=== PATIENT | male | born 1980 | race Caucasian/White ===

== ENCOUNTER 2023-03-02 08:41 | Emergency (ER) | payer SELFPAY ==
--- OUTSIDE RECORDS SUMMARY | 2023-03-02 08:44 | XMS REPORT | Continuity of Care Document ---
:1980 Author Organization [facility] Address [address] [place] [id number] Care Team Providers Name Role Phone Rafy Peterson Attending Clinician Unavailable Meghan Hemphill Attending Clinician Unavailable Problems Condition Condition Condition Status Onset Resolution Last Treating Co mments Source Name Details Category Date Date Treatment Clinician Date Encounter Encounter Problem Active Com mon for for [facility] general [facility] adult adult [facility] examinatio examinatio Me dical n with n with Center abnormal abnormal findings findings Influenza Influenza Problem Active Com mon [facility] Pain in Pain in Diagnosis Active Commo n joints joints [facility] Fever and Fever and Problem Active Com mon chills chills [facility] Allergies, Adverse Reactions, Alerts Allergy Allergy Status Severity Reaction(s) Onset Inactive Treating Comm ents Source Name Type Date Date Clinician Clindamy Adverse Active hives Common yessenia HCl Reaction [facility] Medications Ordered Filled Start Stop Current Ordering Indication Dosage Frequency Signature Comments Components Source Medication Medication Date Date Medication? Clinician (SIG) Name Name Tamiflu Tamiflu Yes Meghan 1 capsule Common 08-11 [facility]: - [facility] Mobic Mobic 2020- No Meghan 1 tablet Comm on 08-11 [facility] 00:00: 00:00 - [facility] :00 [facility] Buprenorphi Buprenorphi Yes Meghan 1 tablet Common ne ne [facility] HCl-[place] HCl-[place] tongue and - [facility] HCl e HCl allow to [facility] Procedures This patient has no known procedures. Encounters Start End Encounter Admission Attending Care Care Encounter Source Date/Time Date/Time Type Type Clinicians Facility Department ID 2021-07-30 Outpatient Rafy Peterson [facility] [id number] Common 11:33:57 Corinne [id number] [facility] 2021-07-30 Outpatient Joby [facility] [id number] Common 11:06:19 Meghan [id number] [facility] 2019-08-11 2019-08-11 Outpatient Ruth Mccarty [id number] Common 09:00:00 09:00:00 [facility] Results This patient has no known results.
[2023-03-02] MEDS ORDERED: IBUPROFEN 400 MG TAB ONE (09:24)
--- NOTE | 2023-03-02 11:01 | ER ---
Nurse's Notes [facility] Name: Jordi Blood Age: 42 yrs Sex: Male : 1980 Arrival Date: 03/02/2023 Time: 08:41 Bed 18 Private MD: Diagnosis: Cellulitis of other parts of limb-RIGHT FOREARM Presentation: 03/02 08:54 Chief complaint: Patient states: abscess to right forearm X 4 days. Coronavirus screen: iw At this time, the client does not indicate any symptoms associated with coronavirus-19. Ebola Screen: Patient negative for fever greater than or equal to 101.5 degrees Fahrenheit, and additional compatible Ebola Virus Disease symptoms Patient denies exposure to infectious person. Patient denies travel to an Ebola-affected area in the 21 days before illness onset. No symptoms or risks identified at this time. Risk Assessment: Do you want to hurt yourself or someone else? Patient reports no desire to harm self or others. 08:54 Method Of Arrival: Ambulatory iw 08:54 Acuity: SHYANNE 3 iw Historical: - Allergies: 08:55 Clindamycin; iw - Home Meds: 08:55 Suboxone sublingual [Active]; iw - PMHx: 08:55 None; iw - PSHx: 08:55 None; iw - Immunization history:: Last tetanus immunization: unknown. - Social history:: Smoking status: . Screenin:00 [facility] ED Fall Risk Assessment (Adult) History of falling in the last 3 months, kc6 including since admission No falls in past 3 months (0 pts) Confusion or Disorientation No (0 pts) Intoxicated or Sedated No (0 pts) Impaired Gait No (0 pts) Mobility Assist Device Used No (0 pt) Altered Elimination No (0 pt) Score/Fall Risk Level 0 - 2 = Low Risk. Abuse screen: Denies threats or abuse. Denies injuries from another. Nutritional screening: No deficits noted. Tuberculosis screening: No symptoms or risk factors identified. Assessment: 09:00 General: Appears in no apparent distress. comfortable, Behavior is calm, cooperative, kc6 appropriate for age. Pain: Complains of pain in right arm Pain does not radiate. Pain currently is 7 out of 10 on a pain scale. Neuro: Level of Consciousness is awake, alert, obeys commands, Oriented to person, place, time, situation, Appropriate for age. Cardiovascular: Capillary refill < 3 seconds. Respiratory: Airway is patent Trachea midline Respiratory effort is even, unlabored, Respiratory pattern is regular, symmetrical. GI: No signs and/or symptoms were reported involving the gastrointestinal system. : No signs and/or symptoms were reported regarding the genitourinary system. EENT: No signs and/or symptoms were reported regarding the EENT system. Derm: Skin is intact, is healthy with good turgor, Skin is pink, warm \T\ dry. Wound noted right arm. Musculoskeletal: No signs and/or symptoms reported regarding the musculoskeletal system. Circulation, motion, and sensation intact. Capillary refill < 3 seconds, Range of motion: intact in all extremities. 10:00 Reassessment: Patient appears in no apparent distress at this time. No changes from kc6 previously documented assessment. Patient and/or family updated on plan of care and expected duration. Pain level reassessed. Patient is alert, oriented x 3, equal unlabored respirations, skin warm/dry/pink. Vital Signs: 08:55 BP 125 / 86; Pulse 62; Resp 16; Temp 98.1; Pulse Ox 98% on R/A; Weight 81.65 kg; Height iw 6 ft. 0 in. ; 08:55 Body Mass Index 24.41 (81.65 kg, 182.88 cm) iw ED Course: 08:42 Patient arrived in ED. im 08:47 Torey Bah PA is PHCP. cp 08:47 Alvino Duval DO is Attending Physician. cp 08:55 Triage completed. iw 08:57 Su Randall, RN is Primary Nurse. kc6 09:00 Patient has correct armband on for positive identification. Placed in gown. Bed in low kc6 position. Call light in reach. Side rails up X 1. 11:10 No provider procedures requiring assistance completed. Patient did not have IV access kc6 during this emergency room visit. Administered Medications: 09:19 Drug: Ibuprofen PO 800 mg Route: PO; kc6 10:17 Follow up: Response: No adverse reaction; Pain is decreased kc6 11:10 Drug: Trimethoprim-Sulfamethoxazole PO (160 mg-800 mg (DS) 2 tablet Route: PO; kc6 11:11 Follow up: Response: No adverse reaction kc6 Medication: 11:11 VIS not applicable for this client. kc6 Outcome: 11:01 Discharge ordered by . cp 11:11 Discharged to home ambulatory. kc6 11:11 Condition: stable 11:11 Discharge instructions given to patient, Instructed on discharge instructions, follow up and referral plans. medication usage, wound care, Demonstrated understanding of instructions, follow-up care, medications, wound care, Prescriptions given X 1. 11:11 Patient left the ED. kc6 Signatures: Danita Valdovinos RN RN iw Torey Bah PA PA cp Campbell, Kaitlyn, RN RN kc Norma Burton Corrections: (The following items were deleted from the chart) 08:56 08:55 Pulse 62bpm; Resp 16bpm; Pulse Ox 98% RA; Temp 98.1F; 81.65 kg; Height 6 ft. 0 iw in.; BMI: 24.4; iw
--- NOTE | 2023-03-02 11:01 | EDPHYS ---
Physician Documentation [facility] Name: Jordi Blood Age: 42 yrs Sex: Male : 1980 Arrival Date: 03/02/2023 Time: 08:41 Bed 18 Private MD: ED Physician Alvino Duval HPI: 03/02 09:20 This 42 yrs old Male presents to ER via Ambulatory with complaints of Insect Bite - cp right arm. 09:20 The patient or guardian complains of a bite, by an insect, swelling, tenderness. The cp complaints affect the palmar aspect of right forearm. 09:20 Onset: The symptoms/episode began/occurred 4 day(s) ago. cp 09:20 Treatment prior to arrival includes: no previous treatment. Associated signs and cp symptoms: The patient has no apparent associated signs or symptoms. Historical: - Allergies: 08:55 Clindamycin; iw - Home Meds: 08:55 Suboxone sublingual [Active]; iw - PMHx: 08:55 None; iw - PSHx: 08:55 None; iw - Immunization history:: Last tetanus immunization: unknown. - Social history:: Smoking status: . ROS: 09:25 Constitutional: Negative for body aches, chills, fever, poor PO intake. cp 09:25 Eyes: Negative for injury, pain, redness, and discharge. cp 09:25 Cardiovascular: Negative for chest pain. 09:25 Respiratory: Negative for cough, shortness of breath, wheezing. 09:25 Abdomen/GI: Negative for abdominal pain, nausea, vomiting, and diarrhea. 09:25 Skin: Positive for erythema, swelling, of the right forearm. 09:25 All other systems are negative. Exam: 09:30 Constitutional: The patient appears in no acute distress, alert, awake, non-toxic, well cp developed, well nourished. 09:30 Chest/axilla: Inspection: normal. cp 09:30 Cardiovascular: Rate: normal. 09:30 Respiratory: the patient does not display signs of respiratory distress, Respirations: normal, no use of accessory muscles. 09:30 Skin: mild swelling with erythema noted right forearm, small pustule noted. Vital Signs: 08:55 BP 125 / 86; Pulse 62; Resp 16; Temp 98.1; Pulse Ox 98% on R/A; Weight 81.65 kg; Height iw 6 ft. 0 in. ; 08:55 Body Mass Index 24.41 (81.65 kg, 182.88 cm) iw Procedures: 11:00 I \T\ D: Incision and drainage was performed for an abscess of the palmar aspect of right cp forearm Prepped with Betadine, Anesthetized with ml's 2% Lidocaine with epinephrine. 3 ml's 2% Lidocaine with epinephrine. area pierced with 18 gauge and scant drainage expressed. MDM: 09:03 Patient medically screened. cp 10:00 Differential diagnosis: abscess, cellulitis. cp 11:00 Data reviewed: vital signs, nurses notes. cp 11:00 I considered the following discharge prescriptions or medication management in the cp emergency department Medications were administered in the Emergency Department. See MAR. Counseling: I had a detailed discussion with the patient and/or guardian regarding the historical points, exam findings, and any diagnostic results supporting the discharge/admit diagnosis, to return to the emergency department if symptoms worsen or persist or if there are any questions or concerns that arise at home. Response to treatment: the patient's symptoms have mildly improved after treatment, and as a result, I will discharge patient. 03/02 09:12 Order name: I\T\D Setup; Complete Time: 09:21 cp Administered Medications: 09:19 Drug: Ibuprofen PO 800 mg Route: PO; kc6 10:17 Follow up: Response: No adverse reaction; Pain is decreased kc6 11:10 Drug: Trimethoprim-Sulfamethoxazole PO (160 mg-800 mg (DS) 2 tablet Route: PO; kc6 11:11 Follow up: Response: No adverse reaction kc6 Disposition Summary: 03/02/23 11:01 Discharge Ordered Location: Home cp Problem: new cp Symptoms: have improved cp Condition: Stable cp Diagnosis - Cellulitis of other parts of limb - RIGHT FOREARM cp Followup: cp - With: Private Physician - When: 48 Hours - Reason: Worsening of condition Discharge Instructions: - Discharge Summary Sheet cp - Cellulitis, Adult cp Forms: - Medication Reconciliation Form cp - Thank You Letter cp - Antibiotic Education cp - Prescription Opioid Use cp - Patient Portal Instructions cp - Leadership Thank You Letter cp Prescriptions: - Bactrim DS 800-160 mg Oral Tablet - take 1 tablet by ORAL route every 12 hours for 10 days; 20 tablet; Refills: 0, cp Product Selection Permitted Addendum: 03/03/2023 11:27 Co-signature as Attending Physician, Alvino Duval DO I was immediately available on-site m s3 in the Emergency Department for consultation in the care of the patient. Signatures: Danita Valdovinos, RN RN Torey Covington PA PA cp Sims, Marcus, DO DO ms3 Su Randall RN RN kc6
[2023-03-02 11:19] VITALS: BP 125/86; TEMP 98.1; O2SAT 98
[2023-03-02] MEDS ORDERED: SMZ./TMP. 800/160 MG TABLET ONE (11:19)
== END 2023-03-02 11:11 | disposition home or self-care (01) ==
LOC: ER 08:41
PROC: 0H9DXZZ Drainage of Right Lower Arm Skin, External Approach (ICD-10-PCS; principal; 2023-03-02)
DX: L03.113 Cellulitis of right upper limb (principal)